=== PATIENT | female | born 1990 | race Two or more races ===

== ENCOUNTER 2018-08-02 21:02 | Emergency (ER) | payer SELFPAY | END 2018-08-02 22:30 | disposition left against medical advice (07) | LOC: FTE 21:02 | DX: Z53.21 Procedure and treatment not carried out due to patient leaving prior to being seen by health care provider (principal) ==

== ENCOUNTER 2018-08-02 21:18 | Outpatient (CLI) | payer SELFPAY | END 2018-08-02 22:05 | disposition home or self-care (01) | LOC: OBT 21:18 → L-D 21:19 | DX: Z53.21 Procedure and treatment not carried out due to patient leaving prior to being seen by health care provider (principal) | CPT/HCPCS: G0463 ==

== ENCOUNTER 2018-10-23 03:00 | Emergency (ER) | payer OTHER | END 2018-10-23 06:08 | disposition home or self-care (01) | LOC: FTE 03:00 | DX: L98.8 Other specified disorders of the skin and subcutaneous tissue (principal); J45.909 Unspecified asthma, uncomplicated; F17.210 Nicotine dependence, cigarettes, uncomplicated | CPT/HCPCS: 99282; Z7502 ==